=== PATIENT | male | born 1975 | race Caucasian/White ===

== ENCOUNTER 2018-04-27 23:20 | Emergency (ER) | payer SELFPAY ==
[~2018-04-27] VITALS: Ht 165.1 cm; Wt 88.6 kg
[2018-04-27 23:20] VITALS: Ht 165.1 cm; Wt 88.6 kg
[2018-04-28] MEDS ORDERED: SOD CHLORIDE 0.9% 100 ML ONE (00:30)
[2018-04-28] MEDS ORDERED: IOHEXOL 100 ML ONE (00:30)
[2018-04-28] MEDS ORDERED: DIPHTH/TET/ACEL PERTUSS (ADULT) 0.5 ML VIAL IM* ONE (00:30)
[2018-04-28] MEDS ORDERED: HYDROCODONE/APAP (5/325) TAB PO ONE (01:00)
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
[2018-04-28 04:34] VITALS: BP 163/100; PULSE 89; RESP 14
== END 2018-04-28 07:35 | disposition home or self-care (01) ==
LOC: E/R 23:20
DX: S81.831A Puncture wound without foreign body, right lower leg, initial encounter (principal); M79.651 Pain in right thigh; W34.00XA Accidental discharge from unspecified firearms or gun, initial encounter; Y92.89 Other specified places as the place of occurrence of the external cause; Z23 Encounter for immunization
CPT/HCPCS: 36415; 73550; 73562; 73706; 80048; 85025; 85610; 85730; 86850; 86900; 86901; 90471; 90715; 99285; Q9967